=== PATIENT | male | born 1990 | race African-American/Black ===

== ENCOUNTER 2019-06-21 21:58 | Emergency (ER) | payer OTHER ==
--- NOTE | 2019-06-22 00:15 | ED ---
Laceration/Wound HPI - HPI Summary HPI Summary: This patient is a 28 year old M presenting to [facility] with a chief complaint of laceration across back of head since 1900. Pt denies signs fo concussion. Per triage, Pt brought in for laceration to posterior head and left side of face. Laceration on posterior head. bleeding controlled on arrival. Per triage the patient rates the pain 0/10 in severity. - History of Current Complaint Chief Complaint: Laceration Stated Complaint: HEAD LAC PER CO Time Seen by Provider: 06/21/19 23:05 Hx Obtained From: Patient, Medical Records Onset/Duration: Lasting Hours, Still Present Aggravating: Nothing Alleviating: Nothing Timing: Constant Current Severity: None Pain Intensity: 0 Pain Scale Used: 0-10 Numeric Associated Signs & Symptoms: Redness - Allergy/Home Medications Allergies/Adverse Reactions: Allergies Allergy/AdvReac Type Severity Reaction Status Date / Time No Known Allergies Allergy Verified 06/21/19 22:01 Home Medications: Home Medications NK [No Home Medications Reported] 06/21/19 [History Confirmed 06/21/19] PMH/Surg Hx/FS Hx/Imm Hx Opthamlomology History: Denies: Hx Legally Blind EENT History: Denies: Hx Deafness Infectious Disease History: No Infectious Disease History: Denies: Traveled Outside the [place] in Last 30 Days - Family History Known Family History: Negative: Hypertension, Diabetes - Social History Alcohol Use: None Substance Use Type: Reports: None Smoking Status (MU): Never Smoked Tobacco - Additional Comments History Additional Comments: Home Medications Medication Instructions Recorded Confirmed Type NK [No Home Medications Reported] 06/21/19 06/21/19 History Review of Systems Negative: Fever Positive: Other - laceration All Other Systems Reviewed And Are Negative: Yes Physical Exam - Summary Physical Exam Summary: General: Well-developed, Well-nourished male. No acute distress. HEENT: Normocephalic, Atraumatic. Eyes: Conjuctiva normal, PERRL. Ears: TMs within normal limits. Nares: (-) discharge, (-) erythema. Oropharynx: Clear, mucous membranes moist, (-) exudates. Neck: Soft, FROM, (-) lymphadenopathy, (-) thyromegaly, (-) JVD. Cardiovascular: Normal sinus rhythm, (-) murmur. Lungs: Clear to auscultation bilaterally (-) wheezes, (-) rales, (-) rhonchi. Abdomen: Soft, non-tender, non-distended, (-) organomegaly, normal bowel sounds. Back: (-) CVA tenderness Extremities: No edema. Skin: Warm, dry, (-) rash. 4.5 cm superficial lac of the left lower face; Left occipital area 2.5 cm lac; 8 cm laceration posterior head Neuro: Alert and oriented x3, no focal deficits. Psychiatric: Mood normal, affect normal. Triage Information Reviewed: Yes Vital Signs On Initial Exam: Initial Vitals Temp Pulse Resp BP Pulse Ox 98.2 F 100 18 138/96 97 06/21/19 22:01 06/21/19 22:01 06/21/19 22:01 06/21/19 22:01 06/21/19 22:01 Vital Signs Reviewed: Yes Procedures - Sedation Patient Received Moderate/Deep Sedation with Procedure: No - Laceration/Wound Repair 1 Location: head Description: Linear Length, Depth and Shape: 8 cm Laceration/Wound Explored: clean Closure: [place] #__ - 10 2 Location: face Length, Depth and Shape: 4.5cm superficial Laceration/Wound Explored: clean Closure: Skin Adhesive 3 Location: head Length, Depth and Shape: 2.5 cm Laceration/Wound Explored: clean Closure: Skin Adhesive Diagnostics - Vital Signs Vital Signs Temp Pulse Resp BP Pulse Ox 06/21/19 22:01 98.2 F 100 18 138/96 97 - Laboratory Lab Statement: Any lab studies that have been ordered have been reviewed, and results considered in the medical decision making process. Re-Evaluation - Re-Evaluation First Eval Comment: Laceration repair Laceration Repair Course/Dx - Course Course Of Treatment: jaw. Pt denies any signs or symptoms of concussion, and had no other injury. His physical exam was otherwise within nml limits. Large scalp laceration repaired with sola, left neck and left jaw repaired with skin adhesive. Sola out in 10 days. Pt discharged with police. - Clinical Impression Provider Diagnoses: Scalp laceration, Face lacerations Discharge ED - Sign-Out/Discharge Documenting (check all that apply): Patient Departure - Discharge - Discharge Plan Condition: Stable Disposition: HOME Patient Education Materials: Staple Care (ED), Facial Laceration (ED) Referrals: Jeannie COOPER,Cheikh Huber [Primary Care Provider] - Additional Instructions: Do not get it wet for first 24 hours, no ointments to the area, sola out in 7 -10 days. Please return to ED for any new or worsening symptoms. - Billing Disposition and Condition Condition: STABLE Disposition: Home - Attestation Statements Document Initiated by Kayla: Yes Documenting Scribe: Malena Powell Provider For Whom Kayla is Documenting (Include Credential): Dr. Keerthi Beckham MD Scribe Attestation: Malena Kolb, scribed for Dr. Keerthi Bcekham MD on 06/22/19 at 0553. Scribe Documentation Reviewed: Yes Provider Attestation: The documentation as recorded by the Malena farris accurately reflects the service I personally performed and the decisions made by , Dr. Keerthi Beckham MD Status of Scribe Document: Viewed
[2019-06-22] MEDS ORDERED: Ibuprofen TAB* 400 MG PO ONE (00:16)
[2019-06-22 00:36] VITALS: BP 143/91
== END 2019-06-22 00:35 | disposition home or self-care (01) ==
LOC: ED 21:58
DX: S01.01XA Laceration without foreign body of scalp, initial encounter (principal); S01.81XA Laceration without foreign body of other part of head, initial encounter; X58.XXXA Exposure to other specified factors, initial encounter; Y92.9 Unspecified place or not applicable
CPT/HCPCS: 12004; 99282; A9270-GY